=== PATIENT | male | born 1995 | race Caucasian/White ===

== ENCOUNTER 2017-12-23 13:37 | Emergency (ER) | payer SELFPAY ==
[2017-12-23] VITALS (8 sets, daily range): BP systolic 143–164; BP diastolic 61–82; PULSE 75–106; RESP 9–19; TEMP 36.6; O2SAT 99–100; BMI 22.4
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
[2017-12-23] MEDS: Diphth,Pertuss(Acell),Tet Vac 0.5 ML Vial IM (14:20)
[2017-12-23] MEDS: Ondansetron 4 MG/2 ML Vial IV (14:20)
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
[2017-12-23] MEDS: Propofol 200 MG/20 ML Vial IV BOLUS (16:10)
[2017-12-23] MEDS: HYDROcodone Bitartrate/Apap 5/325 Tablet PO (16:49)
== END 2017-12-23 17:00 | disposition home or self-care (01) ==
PROVIDERS: Emergency Provider Emergency Medicine
DX: S63.115A Dislocation of metacarpophalangeal joint of left thumb, initial encounter (principal); S09.90XA Unspecified injury of head, initial encounter; T14.8XXA Other injury of unspecified body region, initial encounter; Z23 Encounter for immunization; Z72.0 Tobacco use; V43.62XA Car passenger injured in collision with other type car in traffic accident, initial encounter; Y93.I9 Activity, other involving external motion; Y92.410 Unspecified street and highway as the place of occurrence of the external cause; Y99.8 Other external cause status
CPT/HCPCS: 26700; 70450; 71260; 72125; 73130; 74177; 90715; 96374; 96375; 99285; J7030; J7040; Q9967; J2405

== ENCOUNTER 2023-08-23 22:25 | Emergency (ER) | payer MEDICAID, SELFPAY ==
[2023-08-23 22:26] VITALS: BP 130/70; PULSE 84; RESP 16; TEMP 36.1; O2SAT 100; BMI 20.9
--- NOTE | 2023-08-23 22:38 | RAD_ITS ---
EXAM: XR RIGHT ANKLE COMPLETE, 3 OR MORE VIEWS CLINICAL INDICATION: injury TECHNIQUE: Frontal, lateral and oblique views of the right ankle. COMPARISON: No relevant prior studies available. FINDINGS: BONES/JOINTS: Unremarkable. No acute fracture. No subluxation. Normal alignment. Preservation of the joint space. No sclerotic or destructive changes observed. SOFT TISSUES: Moderate soft tissue swelling over the lateral malleolus. No radiopaque foreign body. RAD/Ankle min 3 Views IMPRESSION: Soft tissue swelling. No visible fracture or joint asymmetry. Electronically Signed: Rylee Sanchez MD at 23:17 EDT ,
--- NOTE | 2023-08-23 22:39 | ED.VIS.LOWEX ---
HPI History of Present Illness Chief Complaint: Lower Extremity Injury Detail of Chief Complaint: Right ankle injury Informant: patient Onset/Context/Timing Onset: Today Narrative Narrative: Patient states he was going down the steps and thought he was at the bottom, but there is 1 more step. When he stepped forward he rolled his ankle and fell. He is unable to weight-bear on his right ankle since that time. He denies pain at his knee or hip. He denies head injury. [facility] Medical History (Updated 08/23/23 @ 23:[address] Cassidy Mendes MD) Palpitations Home Medications buprenorphine 2 mg-naloxone 0.5 mg sublingual tablet 2 tab sublingual DAILY 08/23/23 [History Last Taken Unknown] naproxen 500 mg tablet (Naprosyn) 500 mg PO BID PRN pain #20 tabs 08/23/23 [Rx Last Taken Unknown] propranolol 10 mg tablet 10 mg PO Q12H 08/23/23 [History Last Taken Unknown] Allergy/AdvReac Type Severity Reaction Status Date / Time No Known Allergies Allergy Verified 12/23/17 14:19 Social History Smoking Status: Current every day smoker tobacco type: cigarettes ROS ROS ED Constitutional Constitutional ED: Denies chills or fever(s) Eyes Eyes: Denies discharge from eye(s) ENT ENT ED: Denies discharge from eye(s), rhinorrhea or sore throat Cardiovascular Cardiovascular: Denies chest pain or palpitations Respiratory/Chest Respiratory/Chest: Denies cough or dyspnea Gastrointestinal Gastrointestinal: Denies abdominal pain, nausea or vomiting Musculoskeletal Musculoskeletal: Reports extremity pain; Denies back pain Integumentary Denies Abrasions or rash Neurologic Neurologic: Denies headache(s) or weakness Psychiatric Psychiatric: Denies anxiety or depression Allergic/Immunologic Allergic/Immunologic ED: Denies lip swelling or urticaria EXAM Physical Exam Const Vital Signs: 08/23/23 22:26 Temperature 96.9 F L Temperature Source Temporal Pulse Rate 84 Respiratory Rate 16 Blood Pressure 130/70 H Blood Pressure Mean 90 Pulse Ox 100 Oxygen Delivery Method Room Air Positive well nourished and well developed General Appearance ED: well developed HEENT Reports normocephalic and head/scalp atraumatic Eyes PERRL and EOMs intact bilaterally Neck supple Chest Wall inspection of chest normal and palpation of chest normal Resp normal respiratory effort and clear to auscultation bilaterally Cardio regular rate and regular rhythm GI normal to inspection, nondistended, normoactive bowel sounds Palpation: soft Extremity Extremity Narrative: Tenderness to palpation and edema over the lateral malleolus of the right ankle. No medial tenderness. No tenderness over the foot itself. Strong distal pulses and normal sensation. No tenderness at the knee or proximal fibula. Neuro oriented x3 and no sensory deficits noted Sensorium / Orientation: alert Psych mental status grossly normal Skin no rashes or lesions noted MDM MDM MDM Narrative Medical decision making narrative: Patient is on Suboxone therapy and request only anti-inflammatories. Naprosyn as ordered. Right ankle x-rays obtained to evaluate for fracture. Radiography Diagnostic Testing: Clinical Impression(s) from Imaging Studies Ankle X-Ray 08/23/23 22:38 IMPRESSION: Soft tissue swelling. No visible fracture or joint asymmetry. Electronically Signed: Rylee Sanchez MD at 23:17 EDT , Treatment and Re-Evaluation Narrative: Right ankle x-ray per my interpretation reveals no acute fracture. Radiology interpretation is reviewed and agrees. Test results discussed with patient. He will be given a stirrup air splint and crutches. He may weight-bear as tolerated. He will be referred to Dr. Recinos, on-call for orthopedics if needed. Discharge Plan Triage Chief Complaint: Lower Extremity Injury ED Provider: Cassidy Mendes Dx/Rx/DC Orders Clinical Impression: Sprain of ankle, right Instructions: ED Ankle Sprain (Adult) Prescriptions: New naproxen [Naprosyn] 500 mg tablet 500 mg PO BID PRN (Reason: pain) Qty: 20 0RF No Action buprenorphine-naloxone 2-0.5 mg tablet, sublingual 2 tab SUBLINGUAL DAILY Patient Comments: place 1 tablet under the tongue and dissolve every morning propranolol 10 mg tablet 10 mg PO Q12H Patient Comments: take 1 tablet by mouth twice a day Primary Care Provider: Care Physician,No Primary Referrals: Aravind Recinos MD [Med Staff - Active Staff] - As Needed Care Physician,No Primary [Primary Care Provider] - Disposition Disposition: Home, Self Care
[2023-08-23] MEDS: Naproxen 500 MG Tablet PO (22:57)
[2023-08-23 23:39] VITALS: PULSE 79; RESP 16; O2SAT 98
== END 2023-08-23 23:40 | disposition home or self-care (01) ==
PROVIDERS: Emergency Provider Emergency Medicine; Visit Provider Emergency Medicine
DX: S93.401A Sprain of unspecified ligament of right ankle, initial encounter (principal); F17.210 Nicotine dependence, cigarettes, uncomplicated; W10.9XXA Fall (on) (from) unspecified stairs and steps, initial encounter
CPT/HCPCS: 73610; 99284